=== PATIENT | female | born 1965 | race Two or more races ===

== ENCOUNTER 2021-03-30 05:38 | Day surgery (SDC) | payer OTHER ==
[~2021-03-30 05:38] MED LIST: GABAPEN PO; LASIX PO; SYNTH PO
[2021-03-30] MEDS ORDERED: ULTRACET PO (11:56)
[2021-03-30] MEDS ORDERED: DUI500 PO (11:56)
[2021-03-30] MEDS ORDERED: ASA325 M1 PO (11:56)
== END 2021-03-30 16:45 | disposition home or self-care (01) ==
LOC: CIR.AMB 05:38
PROVIDERS: ATTEND Orthopaedic Surgery
DX: S83.231A Complex tear of medial meniscus, current injury, right knee, initial encounter (principal); S83.281A Other tear of lateral meniscus, current injury, right knee, initial encounter; M94.261 Chondromalacia, right knee; Z20.822 Contact with and (suspected) exposure to COVID-19